=== PATIENT | female | born 1935 | race Caucasian/White ===

== ENCOUNTER → 2021-09-18 | Outpatient (CLI) | payer MEDICARE, OTHER | LOC: KOH-I 10:38 | DX: M79.671 Pain in right foot (principal); M21.071 Valgus deformity, not elsewhere classified, right ankle | CPT/HCPCS: 73630 ==

== ENCOUNTER → 2021-09-27 | Outpatient (CLI) | payer MEDICARE, OTHER | LOC: US 12:23 → MRI 14:45 | DX: Z01.818 Encounter for other preprocedural examination (principal); I73.9 Peripheral vascular disease, unspecified; M79.89 Other specified soft tissue disorders | CPT/HCPCS: 73718; 93926 ==

== ENCOUNTER → 2021-12-20 | Outpatient (CLI) | payer MEDICARE, OTHER | LOC: KOH-I 12:23 | DX: I70.213 Atherosclerosis of native arteries of extremities with intermittent claudication, bilateral legs (principal); E78.5 Hyperlipidemia, unspecified; C85.90 Non-Hodgkin lymphoma, unspecified, unspecified site; N18.30 Chronic kidney disease, stage 3 unspecified | CPT/HCPCS: 74176 ==